=== PATIENT | female | born 2000 | race Two or more races ===

== ENCOUNTER 2025-08-04 12:19 | Emergency (ER) | payer MEDICAID ==
[~2025-08-04] VITALS: Ht 154.9 cm; Wt 48.0 kg
[2025-08-04 12:40] VITALS: O2SAT 98
[2025-08-04] MEDS ORDERED: AMOX1TAB16 MT (17:13)
[2025-08-04] MEDS ORDERED: IBUP-1455 MT (17:13)
[2025-08-04 17:31] VITALS: BP 109/55; PULSE 77; RESP 17; TEMP 36.8; O2SAT 100
== END 2025-08-04 17:32 | disposition home or self-care (01) ==
LOC: ER 12:32
DX: L03.032 Cellulitis of left toe (principal); R51.9 Headache, unspecified
CPT/HCPCS: 70486; 99284